=== PATIENT | female | born 1970 | race Caucasian/White ===

== ENCOUNTER → 2016-03-22 | Day surgery (SDC) | payer BC ==
[~2016-03-22] MED LIST: BUPIVACAINE 0.5% 30 ML VIAL INF ONE; DEXAMETHASONE 4 MG/ML VIAL INF ONE; DEXAMETHASONE 4 MG/ML VIAL IV PRN; DIAZEPAM 5 MG TAB PO PRN; FENTANYL 100 MCG/2 ML VIAL IV PRN; FENTANYL 100 MCG/2 ML VIAL ONE; HYDROCODONE 5 MG/ACETAMIN 325 MG TAB PO PRN; KETOROLAC TROMETH 30 MG/ML VIAL IV PRN; LABETALOL 20 MG/4 ML SYRINGE IV PRN; LIDOCAINE 1% 30 ML VIAL (PRESERVATIVE FREE) INF ONE; LR 1,000 ML IV ONE; LR 1,000 ML IV SCH; MIDAZOLAM 2 MG/2 ML VIAL ONE; NS 1,000 ML IV SCH; NS 250 ML IV SCH; ONDANSETRON HCL 4 MG/2 ML VIAL IV PRN; PROPOFOL 200 MG/20 ML VIAL IV ONE; SCOPOLAMINE TRANSDERMAL PATCH TOP PRN; hydrALAZINE 20 MG/ML VIAL IV PRN
[2016-03-22 06:45] VITALS: BMI 27.5
--- NOTE | 2016-03-22 06:55 | SC.ANESEVA ---
Anesthesia Eval & Plan ([facility]) - Providers Stated Procedure: left foot bunionectomy - Medications/Allergies Allergies: Allergies No Known Allergies Allergy (Verified 03/22/16 06:41) Home Medications: Home Medication List Atorvastatin Calcium [Lipitor] 10 mg PO DAILY 03/22/16 [History] Levothyroxine [Synthroid, Levoxyl] 25 mcg PO DAILY 03/22/16 [History] Current Medication List: Reviewed - Focused Physical Exam NPO since: after Midnight Mallampati: Class II Neck: Full Range of Motion Dental: Normal - no significant findings Cardiovascular/Chest: Normal Respiratory: Lungs clear Test Result: Negative Other: Diagnoses HALLUX VALGUS (ACQUIRED), LEFT FOOT (03/22/16) Allergies Allergy/AdvReac Type Severity Reaction Status Date / Time No Known Allergies Allergy Verified 03/22/16 06:41 Home Medications Medication Instructions Recorded Last Taken Type Atorvastatin Calcium [Lipitor] 10 mg PO DAILY 03/22/16 Unknown History Levothyroxine [Synthroid, Levoxyl] 25 mcg PO DAILY 03/22/16 03/22/16 History Height and Weight Patient's height 5 ft 4.5 in Patient's weight 73.936 kg Weight (Calculated Kilograms) 73.936 BMI 27.5 - Anesthetic Plan Anesthesia Type: MAC ASA Class: 2 - Focused Review of Systems Smoking Status: Never smoker Other Surgical History: BTL
[2016-03-22 08:42] VITALS: BP 110/91; PULSE 79; TEMP 97.7
--- NOTE | 2016-03-22 08:42 | HIMOPRPT ---
DATE OF PROCEDURE: 03/22/16 PREOPERATIVE DIAGNOSIS: Hallux Valgus Bunion left foot. POSTOPERATIVE DIAGNOSIS: Hallux Valgus Bunion left foot. PROCEDURE: Foot Bunionectomy Clemente (ernstvron), left foot SURGEON: Elvis Larkin DPM COMPLICATIONS: None. ANESTHESIA: MAC. Estimated Blood loss : Minimal ml. DRAINS: None SPECIMENS: None IMPLANTS: Kwire TROC PT .361M0cg FINDINGS: Consistent with surgical diagnosis OPERATIVE PROCEDURE: The patient was brought into the operating room, placed on the operating room table in supine position in good anatomical alignment. Once vital signs were noted to be stable and sufficient, sedation had been achieved. The left foot was anesthetized with 18cc of 1% lidocaine plain. Well-padded ankle tourniquet was placed around the ankle. left foot was then prepped and draped in the usual sterile manner. Using an Esmarch tourniquet , blood was exsanguinated and tourniquet was inflated to 250 mmHg. Attention was then directed to the dorsal aspect of the foot overlying the first metaphalangeal joint where curvilinear incision approximately 5 cm in length was made beginning at the junction of the proximal one-third of the proximal phalanx and ending overlying the junction of the distal one-third of the first metatarsal. The incision was immediately medial to the extensor hallucls longus tendon. This incision was widened and deepened through subcutaneous layers. Any identified vital structures were carefully retracted. An inverted "L" capsulotomy of the 1st metatarsal was performed. The joint was inspected on both the metatarsal and phalangeal sides. The cartilaginous surfaces of the 1st metatarso-phalangeal joint were found to be free of significant defects. A portion of the medial hypertrophic 1st metatarsal head was carefully resected. A guiding K-wire was then driven through the first metatarasal head from medial to lateral. A modified Chevron osteotomy of the first metatarsal head was created with the apex distal using the K-wire as a guide. The first metatarsal head was displaced laterally and temporarily stabilized. Once adequate position was clearly visualized internal fixation was achieved with two(2) .045 inch K- wires driven from dorsal proximal to plantar distal with care to avoid violating the MTP joint. The K wires were bent and cut flush to the bone. The medial eminence of the first metatarsal head and the redundant bone along the medial aspect of the first metatarsal shaft were resected with a sagittal saw and rasped smoothly. Intaoperative radiographs were performed and 1st metatarsal phalangeal joint was noted to be in good anatomic alignment with k wire fixation. Excellent fixation was noted with the distal capital fragment in its laterally transposed position. Intraoperative correction was assessed and found to be adequate causing me to flush the wound and close it in layers with absorbable and nonabsorbable suture. The incision site was reinforced using steri strips. An additional 4cc of 0.5% marcaine plain and 1cc 4mg decadron was injected for its long acting anesthetic and anti inflammatory effect. Surgical site dressed with Betadine, dry sterile gauze, Edis and Coban. The tourniquet was deflated and the CFT was immediate to all distal toes. Sponge needle and blades counts were all correct. A below the knee fiberglass cast was applied to the lower extremity. The patient tolerated the services well and left the operating room in no distress to PACU. The patient was given our usual written and oral postoperative instructions.
--- NOTE | 2016-03-22 08:42 | PCM.DCS92 ---
Discharge Outpatient Note Additional Instructions: Instructions: 03/22/16 * Go directly home and keep your feet elevated on the way * Apply an ice bag covered with a towel just above; but not on, the operative site for 20 minutes on and 20 minutes off * Limited swelling is expected. Occasionally, the skin may take on a bruised appearance.- This no cause for alarm. * Elevate your feet six inches above your hip level by supporting feet and legs with pillow * Bedding may be kept from irritating the surgical site by use of a cardboard box to cradle the covers over the feet. * Exercise your legs frequently by bending your knees to stimulate circulation and speed healing * Have prescriptions filled and take medications as directed. If medication causes stomach upset, headache, rash or other abnormal reactions, discontinue use and CALL THE DOCTOR! * Curtail the use of alcoholic beverages and smoking * Get plenty of rest with the foot elevated. Drink plenty of fluids and eat regular well-balanced meals. * Follow up with office as scheduled * Call with any questions prior to appointment or if wound is red, painful or draining pus [phone].(There is a physician conduit bender 24 hrs a day) Wound Care: * Keep wound clean and dry DO NOT remove the bandages or inspect the wound.( A small amount of blood on bandage is normal) Diet: Regular as tolerated Weight Bearing: [Partial] No driving until cleared by physician Follow up in office as scheduled Call the office IMMEDIATELY if: * The bandages become overly stained * your medications do not stop discomfort * You bump or injure the surgical site * You develop a fever above 100 degrees * You get dressings wet or bandage becomes loose.
--- NOTE | 2016-03-22 09:29 | SC.ANESPOS ---
Post-Anesthesia Note LOC: Fully Awake Post-Anesthesia Assessment: Awake, Returned to Baseline, Hemodynamically Stable , Pain Control Adequate Phase I & II Recovery Complete: Yes Apparent Anesthesia Complication: No : N - Vital Signs Blood Pressure: 110/91 Pulse: 79 Resp Rate: 16 O2 Sat: 96 Temp: 97.7 F
== END ==
LOC: CPSC 06:09
PROVIDERS: ATTEND Podiatrist
PROC: 0QBP0ZZ Excision of Left Metatarsal, Open Approach (ICD-10-PCS; principal; 2016-03-22 07:15)
DX: M20.12 Hallux valgus (acquired), left foot (principal); M21.612 Bunion of left foot
CPT/HCPCS: 28296; J1100; J2001; J2250; J2704; J3010; J3490